=== PATIENT | female | born 1990 | race Caucasian/White ===

== ENCOUNTER → 2019-07-15 | Outpatient (CLI) | payer OTHER ==
--- NOTE | 2019-07-15 16:57 | Diagnostic Imaging Report ---
INDICATION: assessment of anatomy. TECHNIQUE: Multiple real-time grayscale images were obtained over the gravid uterus. COMPARISON: None. FINDINGS: Henry intrauterine gestation in oblique position. The placenta is fundal and on the right without evidence of previa. cardiac activity is present with a rate 147 bpm. There is normal amount of amniotic fluid. No anomaly is identified; however, there is mild dilatation of renal pelves. biometry indicates gestational age of 20 weeks and 1 day. No maternal adnexal region abnormality is identified. IMPRESSION: Unremarkable obstetrical ultrasound with estimated gestational age of 20 weeks and 1 day. Sonographic EDC is 12/01/2019. There is slight prominence of the renal collecting systems with normal amniotic fluid level present. Biometrical measurements are as follows: Biparietal 4.87 cm, age 20 weeks 6 days. Head circumference 17.45 cm, age 20 weeks 0 days. Abdominal circumference 14.84 cm, age 20 weeks 1 days. Femur length 3.06 cm, age 19 weeks 4 days. Sonographic estimate age: 20 weeks 1 days. Sonographic estimated date of delivery: 12/01/19. Estimated Weight: 318 gm (+/- 46 gm). LMP percentile: 38%. heart rate: 147 beats per minute. number: 1 of 1. Dictated by: Dictated on workstation # [id number]
== END ==
LOC: RAD 15:31
PROVIDERS: ATTEND Obstetrics & Gynecology
DX: Z36.89 Encounter for other specified antenatal screening (principal); Z3A.20 20 weeks gestation of pregnancy
CPT/HCPCS: 76805

== ENCOUNTER 2019-12-01 18:56 | Inpatient (IN) | payer OTHER ==
[~2019-12-01] VITALS: Ht 175.3 cm; Wt 87.4 kg
[2019-12-01] MEDS ORDERED: D5 LR IV SOLUTION 1,000 ML IV ONE (19:37)
[2019-12-01] MEDS: D5 LR IV SOLUTION 1,000 ML IV SCH (20:13)
[2019-12-01] MEDS ORDERED: MISOPROSTOL 100 MCG (CYTOTEC) TAB PO NR (20:15)
[2019-12-01] MEDS ORDERED: MINERAL OIL CONCENTRATE 99.9% 15 ML UDC TOP PRN (20:15)
[2019-12-01 20:30] VITALS: BP 114/65
[2019-12-01 21:04] VITALS: BP 114/70
[2019-12-01 21:09] LABS: BASOPHILS # (AUTO) 0.1 10^3/uL (0.0-0.1); BASOPHILS % (AUTO) 1 % (0-10); EOSINOPHILS # (AUTO) 0.1 10^3/uL (0.0-0.3); EOSINOPHILS % (AUTO) 1 % (0-10); HEMATOCRIT 39 % (35-52); HEMOGLOBIN 13.6 G/DL (11.5-16.0); LYMPHOCYTES # (AUTO) 2.1 X 10^3 (1.0-4.0); LYMPHOCYTES % (AUTO) 16 % (12-44); MEAN CORPUSCULAR HEMOGLOBIN 33 PG (25-34); MEAN CORPUSCULAR HGB CONC 35 G/DL (32-36); MEAN CORPUSCULAR VOLUME 94 FL (80-99); MEAN PLATELET VOLUME 11.1 FL (7.4-10.4); MONOCYTES % (AUTO) 8 % (0-12); NEUTROPHILS # (AUTO) 9.4 X 10^3 (1.8-7.8); NEUTROPHILS % (AUTO) 74 % (42-75); PLATELET COUNT 198 10^3/uL (130-400); WHITE BLOOD COUNT 12.6 10^3/uL (4.3-11.0)
[2019-12-01 21:30] VITALS: BP 112/58
[2019-12-01] MEDS ORDERED: CATHETER FLUSH 10 ML SYR IV SCH (22:00)
[2019-12-01 22:30] VITALS: BP 107/55
[2019-12-01 23:30] VITALS: BP 87/52
[2019-12-02] VITALS (38 sets, daily range): BP systolic 94–114; BP diastolic 48–78
[2019-12-02] MEDS: D5 LR IV SOLUTION 1,000 ML IV SCH ×3 (00:05→22:36)
[2019-12-02] MEDS ORDERED: MISOPROSTOL 100 MCG (CYTOTEC) TAB PO SCH (00:15)
[2019-12-02] MEDS ORDERED: OXYTOCIN PRE-MIX DRIP 500 ML IV SCH ×2 (06:20→12:41)
[2019-12-02] MEDS ORDERED: OXYTOCIN PRE-MIX DRIP 500 ML IV ONE (06:20)
[2019-12-02] MEDS ORDERED: LACTATED RINGERS 1,000 ML IV ONE ×2 (06:46→10:34)
[2019-12-02] MEDS ORDERED: ACYC400T PO (06:55)
[2019-12-02] MEDS ORDERED: fentaNYL 2 mcg/ml BUPIVA 0.125 100 ML ONE (07:22)
[2019-12-02] MEDS ORDERED: HYDROmorphone 2 MG/ML VIAL (DILAUDID) ONE (08:18)
[2019-12-02] MEDS ORDERED: fentaNYL INJECTION 100 MCG/2 ML AMP ONE (08:20)
[2019-12-02] MEDS ORDERED: ONDANSETRON 4 MG/2 ML (SDV) Z0FRAN ONE (08:21)
[2019-12-02] MEDS ORDERED: HYDROmorphone 2 MG/ML VIAL (DILAUDID) IVP ONE (08:30)
[2019-12-02] MEDS ORDERED: ONDANSETRON 4 MG/2 ML (SDV) Z0FRAN IVP PRN (08:30)
--- NOTE | 2019-12-02 08:50 | History & Physical-OB ---
OB - Chief Complaint & HPI Date/Time Date of Admission: Date of Admission: Dec 01, 2019 at 6:56 pm Date seen by a Provider: Dec 02, 2019 Time Seen by a Provider: 08:00 Chief Complaint/History OB-Reason for Admission/Chief: Induction of Labor Hx : 1 Hx Para: 0 Expected Date of Delivery: Dec 02, 2019 Gestational Age in Weeks: 39 Gestational Age in Days: 6 Admission Nurse Assessment Rev: Yes History of Labs A neg Antibody neg RI RPR NR HBsAg NR HIV NR GC neg GBS neg Allergies and Home Medications Allergies Coded Allergies: No Known Drug Allergies (Unverified , 12/01/19) Home Medications Acyclovir 400 Mg Tablet, 400 MG PO DAILY, (Reported) Patient Home Medication List Home Medication List Reviewed: Yes OB - History Hx of Present Care: Yes Ultrasounds: Normal mid trimester US Obstetrical Complications: None Medical Complications: None Delivery History Adverse Rxn to Tranfusion: No Patient Past Medical History n/a Social History/Family History HIV/AIDS: No Recent Infectious Disease Expo: No Sexually Transmitted Disease: Yes (HSV) Alcohol Use: Denies Use Recreational Drug Use: No Immunizations Hepatitis A: Yes Hepatitis B: Yes Date of Influenza Vaccine: Nov 26, 2019 OB - Admission Exam Physical Exam Vitals: Vital Signs 12/01/19 12/02/19 12/02/19 21:04 05:35 06:49 Temp 36.7 Pulse 63 Resp 20 B/P (MAP) 104/52 (69) Pulse Ox 97 O2 Delivery Room Air HEENT: NCAT Heart: Rhythm Normal Lungs: Clear Abdomen: Gravid Extremities: Normal Reflexes: Normal Cervical Dilatation: 3cm Effacement: 75% Station: -1 Membranes: Intact Heart Rate: 130's Accelerations: Accelerations Present Decelerations: No Decelerations Short Term Variability: Present Pot Liner Variability: Average (6-25) Contractions on Admission: 6-10 Minutes Apart Intensity: Mild Juan Scoring Tool (Modified) Dilation (cm): 1-2cm (1) Effacement (%): 51-79% (2) Descent/Station: -1,0 (2) Cervix Consistency: Soft (2) Cervix Position: Anterior (2) Subtract 1 point for: Nulliparity (-1) Juan Score: 8 Labs Laboratory Tests Test 12/01/19 19:50 Range/Units White Blood Count 12.6 H 4.3-11.0 10^3/uL Red Blood Count 4.16 L 4.35-5.85 10^6/uL Hemoglobin 13.6 11.5-16.0 G/DL Hematocrit 39 35-52 % Mean Corpuscular Volume 94 80-99 FL Mean Corpuscular Hemoglobin 33 25-34 PG Mean Corpuscular Hemoglobin Concent 35 32-36 G/DL Red Cell Distribution Width 13.5 10.0-14.5 % Platelet Count 198 130-400 10^3/uL Mean Platelet Volume 11.1 H 7.4-10.4 FL Neutrophils (%) (Auto) 74 42-75 % Lymphocytes (%) (Auto) 16 12-44 % Monocytes (%) (Auto) 8 0-12 % Eosinophils (%) (Auto) 1 0-10 % Basophils (%) (Auto) 1 0-10 % Neutrophils # (Auto) 9.4 H 1.8-7.8 X 10^3 Lymphocytes # (Auto) 2.1 1.0-4.0 X 10^3 Monocytes # (Auto) 1.0 0.0-1.0 X 10^3 Eosinophils # (Auto) 0.1 0.0-0.3 10^3/uL Basophils # (Auto) 0.1 0.0-0.1 10^3/uL OB - Assessment/Plan/Diagnosis Assessment Assessment: induction of labor Admission Dx 28 yo @ 39.6 Induction of labor GBS neg Admission Status: Inpatient Order (span 2 midnights) Reason for Inpatient Admission: Induction of labor at 39.6 Plan Plan: Induction Induction Method: per Misoprostol Protocol YASMIN GUEVARA DO Dec 02, 2019 8:50 am
[2019-12-02] MEDS ORDERED: LIDOCAINE/EPI 2% 1:200,00 (XYLOCAINE) 10 ML VIAL ONE (10:29)
[2019-12-02] MEDS ORDERED: fentaNYL 2 mcg/ml BUPIVA 0.125 100 ML EPI PRN (10:45)
[2019-12-02] MEDS ORDERED: METOCLOPRAMIDE INJ 10 MG/2 ML (REGLAN) IV PRN (10:45)
[2019-12-02] MEDS ORDERED: EPIDURAL (fentaNYL 2 MCG/ML BUPIVA 0.125%)100 ML BAG EPI PRN (10:45)
[2019-12-02] MEDS ORDERED: ONDANSETRON 4 MG/2 ML (SDV) Z0FRAN IV PRN (10:45)
[2019-12-02] MEDS ORDERED: NALOXONE 0.4 MG/ML 1 ML (NARCAN) VIAL IV PRN ×2 (10:45)
[2019-12-02] MEDS ORDERED: diphenhydrAMINE 50 MG/ML INJ (BENADRYL) IV PRN (10:45)
[2019-12-02] MEDS ORDERED: WITCH HAZEL(TUCKS) 40 EA JAR TOP PRN (12:45)
[2019-12-02] MEDS ORDERED: BENZOCAINE/MENTHOL (DERMOPLAST) 60 ML CAN TP PRN (12:45)
--- NOTE | 2019-12-02 13:30 | OB Labor & Delivery Record ---
L&D History Date of Service Date of Service: Dec 02, 2019 History Expected Date of Delivery: Dec 02, 2019 Gestational Age in Weeks: 40 Hx : 1 Hx Para: 0 Complications Events: Routine care Operative Indications (Cesarea: N/A-Vaginal Delivery Intrapartal Events: None L&D Stage1 Stage One Onset of Labor - Date: Dec 02, 2019 Monitors and Tracing Monitor Mode: External Heart Rate: 120 Monitor Accelerations: Uniform Monitor Decelerations: None Station: +1 Alf Variability: Average (6-10) Short Term Variability: Present Presentation: Vertex Vital Signs VS - Last 72 Hours, by Label 12/01/19 12/01/19 12/01/19 12/01/19 20:30 21:04 21:30 22:30 Temp 36.6 36.7 37.0 Pulse 74 82 68 67 Resp 18 18 18 18 B/P (MAP) 114/65 (81) 112/58 (76) 107/55 (72) Pulse Ox 97 O2 Delivery Room Air Room Air Room Air Room Air 12/01/19 12/02/19 12/02/19 12/02/19 23:30 00:30 01:30 02:30 Temp 36.7 Pulse 69 72 73 58 Resp 18 18 18 18 B/P (MAP) 87/52 (64) 107/59 (75) 107/55 (72) 101/59 (73) O2 Delivery Room Air Room Air Room Air Room Air 12/02/19 12/02/19 12/02/19 12/02/19 03:40 04:30 05:35 06:49 Temp 36.7 36.7 Pulse 79 60 63 63 Resp 20 20 20 20 B/P (MAP) 108/63 (78) 101/61 (74) 112/66 (81) 104/52 (69) O2 Delivery Room Air Room Air Room Air Room Air 12/02/19 12/02/19 12/02/19 12/02/19 07:20 07:40 08:05 08:20 Temp 36.4 Pulse 69 79 65 65 Resp 18 18 18 18 B/P (MAP) 103/50 (67) 112/53 (72) 114/66 (82) 112/55 (74) O2 Delivery Room Air Room Air Room Air Room Air 9/12/02/19 12/02/19 12/02/19 08:31 08:35 08:40 08:45 Pulse 70 83 89 69 Resp 18 18 18 18 B/P (MAP) 102/58 (73) 105/57 (73) 108/63 (78) 104/58 (73) Pulse Ox 96 97 97 98 O2 Delivery Room Air Room Air Room Air Room Air 12/02/19 12/02/19 12/02/19 12/02/19 08:50 08:55 09:00 09:05 Pulse 83 55 54 66 Resp 18 18 18 18 B/P (MAP) 105/57 (73) 97/52 (67) 96/54 (68) 102/56 (71) Pulse Ox 97 95 95 97 O2 Delivery Room Air Room Air Room Air Room Air 12/02/19 12/02/19 12/02/19 12/02/19 09:10 09:15 09:20 09:25 Pulse 62 59 56 68 Resp 18 18 18 18 B/P (MAP) 105/60 (75) 108/59 (75) 103/60 (74) 103/59 (74) Pulse Ox 100 98 99 98 O2 Delivery Room Air Room Air Room Air Room Air 12/02/19 12/02/19 12/02/19 09:30 09:35 09:50 Pulse 65 65 80 Resp 18 18 18 B/P (MAP) 105/57 (73) 105/57 (73) Pulse Ox 100 100 100 O2 Delivery Room Air Room Air Room Air Rupture of Membranes Spontaneous Ruture of Membrane: No Amniotic Membrane Rupture Time: 0800 Amniotic Membrane Fluid Desc.: Clear Vaginal Bleeding Description: Normal Show Induction/Anesthesia Epidural Cath Placement - Time: 0843 L&D Stage2 Stage Two Stage II Date: Dec 02, 2019 Monitors and Tracing Monitor Mode: External Heart Rate: 120 Monitor Accelerations: Uniform Monitor Decelerations: Variable Alf Variability: Average (6-10) Short Term Variability: Present Position: Right Occiput Anterior Presentation: Vertex Cord Descript/Complications Cord Vessel Description: 3 Vessels Delivery Type Delivery Method: Spontaneous Vaginal Anterior Shoulder: Left Episiotomy/Perineal Laceration Laceraction(s)/Extensions: Yes Episiotomy Description: Perineal Extension/lac, 2nd degree Degree (describe repair) 2nd degree perineal laceration repaired using 3-0 and 2-0 vicryl suture in usual fashion Condition of Delivery 1 minute Comment: 9 5 minute Comment: 9 Notes Live male 8lbs 2 oz Condition of Infant Condition of : Living Exam: No Observed Abnormalities Resuscitation Resuscitation: N/A - Spontaneous Resp L&D Stage3 Stage Three Stage III Date: Dec 02, 2019 Pictocin Pitocin Administration mu/min: 2 Pitocin ml/hr: 2 Pitocin Administration Comment: 30 mu wide open at delivery of placetna Placenta Delivery Placenta Delivery: Spontaneous Delivery Summary Summary Estimated blood loss (mL): 350 Attending at delivery: Yasmin Guevara DO Condition of Delivery Examined: Cervix Examined, Uterus Explored Post Hemorrhage: No Condition of Mother stable Condition of Infant (s) stable YASMIN GUEVARA DO Dec 02, 2019 1:30 pm
[2019-12-02] MEDS: IBUPROFEN 600 MG (MOTRIN) TAB PO SCH ×2 (14:02→21:11)
[2019-12-02] MEDS: DOCUSATE SODIUM 100 MG (COLACE) CAP PO SCH (21:11)
[2019-12-03 00:30] VITALS: BP 97/65
[2019-12-03 03:15] VITALS: BP 98/63
[2019-12-03] MEDS: IBUPROFEN 600 MG (MOTRIN) TAB PO SCH ×2 (03:15→08:29)
[2019-12-03 05:45] LABS: BASOPHILS # (AUTO) 0.1 10^3/uL (0.0-0.1); BASOPHILS % (AUTO) 1 % (0-10); EOSINOPHILS # (AUTO) 0.1 10^3/uL (0.0-0.3); EOSINOPHILS % (AUTO) 1 % (0-10); HEMATOCRIT 32 % (35-52); HEMOGLOBIN 10.8 g/dL (11.5-16.0); LYMPHOCYTES # (AUTO) 2.3 10^3/uL (1.0-4.0); LYMPHOCYTES % (AUTO) 20 % (12-44); MEAN CORPUSCULAR HEMOGLOBIN 32 pg (25-34); MEAN CORPUSCULAR HGB CONC 33 g/dL (32-36); MEAN CORPUSCULAR VOLUME 97 fL (80-99); MEAN PLATELET VOLUME 10.3 fL (9.0-12.2); MONOCYTES % (AUTO) 9 % (0-12); NEUTROPHILS # (AUTO) 7.5 10^3/uL (1.8-7.8); NEUTROPHILS % (AUTO) 65 % (42-75); PLATELET COUNT 150 10^3/uL (130-400); WHITE BLOOD COUNT 11.6 10^3/uL (4.3-11.0)
--- NOTE | 2019-12-03 06:42 | Anesthesia-Regional Post-Op ---
Regional Patient Condition Mental Status: Alert, Oriented x3 Circulation: Same as Pre-Op Headache: Absent Sensation: Full Recovery Motor Block: Absent Post Op Complications Complications None Follow Up Care/Instructions Patient Instructions None needed. Anesthesia/Patient Condition Patient is doing well, no complaints, stable vital signs, no apparent adverse anesthesia problems. No complications reported per nursing. MARIA EUGENIA NUNEZ CRNA Dec 03, 2019 06:42
--- NOTE | 2019-12-03 08:24 | Postpartum Progress Note ---
Note Note Day # 1 Subjective: Patient is without complaints. Ambulating, voiding. Tolerating a regular diet without nausea or vomiting. Normal lochia. Pain is well controlled with oral pain medications. Objective: Physical Exam: General - Alert and oriented, no apparent distress Abdomen - Soft, appropriately tender to palpation, non-distended, fundus firm at umbilicus Extremities - no edema, negative Catina's bilaterally Assessment: PPD 1 NVD Acute blood loss anemia Plan: Routine care. Encourage breast feeding. Encourage ambulation. Ferrous sulfate supplementation. Plan for discharge today Vitals - Labs Vital Signs - I&O Vital Signs Date Time Temp Pulse Resp B/P (MAP) Pulse Ox O2 Delivery O2 Flow Rate FiO2 12/03/19 03:15 36.6 65 18 98/63 (75) 99 Room Air 12/03/19 00:30 36.3 67 18 97/65 (76) 100 Room Air 12/02/19 21:11 36.8 69 18 108/61 (77) 100 Room Air 12/02/19 18:00 35.7 92 18 113/78 (90) 100 Room Air 12/02/19 13:07 74 18 103/55 (71) Room Air 12/02/19 12:52 73 18 97/56 (70) Room Air 12/02/19 12:37 78 18 99/60 (73) Room Air 12/02/19 12:22 69 18 95/51 (66) Room Air 12/02/19 12:07 74 18 94/50 (65) Room Air 12/02/19 11:52 79 18 94/48 (63) Room Air 12/02/19 11:37 74 18 102/55 (71) Room Air 12/02/19 11:07 73 18 98/56 (70) Room Air 12/02/19 10:52 90 18 114/59 (77) Room Air 12/02/19 10:37 36.4 153 18 110/50 (70) Room Air 12/02/19 10:20 60 18 107/51 (69) Room Air 12/02/19 10:05 73 18 100 Room Air 12/02/19 09:50 80 18 105/57 (73) 100 Room Air 12/02/19 09:35 65 18 100 Room Air 12/02/19 09:30 65 18 105/57 (73) 100 Room Air 12/02/19 09:25 68 18 103/59 (74) 98 Room Air 12/02/19 09:20 56 18 103/60 (74) 99 Room Air 12/02/19 09:15 59 18 108/59 (75) 98 Room Air 12/02/19 09:10 62 18 105/60 (75) 100 Room Air 12/02/19 09:05 66 18 102/56 (71) 97 Room Air 12/02/19 09:00 54 18 96/54 (68) 95 Room Air 12/02/19 08:55 55 18 97/52 (67) 95 Room Air 12/02/19 08:50 83 18 105/57 (73) 97 Room Air 12/02/19 08:45 69 18 104/58 (73) 98 Room Air 12/02/19 08:40 89 18 108/63 (78) 97 Room Air 12/02/19 08:35 83 18 105/57 (73) 97 Room Air 12/02/19 08:31 70 18 102/58 (73) 96 Room Air I & O 12/03/19 07:00 Intake Total 3000 ml Balance 3000 ml Labs Laboratory Tests 12/03/19 05:35: White Blood Count 11.6H, Red Blood Count 3.34L, Hemoglobin 10.8L, Hematocrit 32L , Mean Corpuscular Volume 97, Mean Corpuscular Hemoglobin 32, Mean Corpuscular Hemoglobin Concent 33, Red Cell Distribution Width 13.2, Platelet Count 150, Mean Platelet Volume 10.3, Immature Granulocyte % (Auto) 6, Neutrophils (%) (Auto) 65, Lymphocytes (%) (Auto) 20, Monocytes (%) (Auto) 9, Eosinophils (%) (Auto) 1, Basophils (%) (Auto) 1, Neutrophils # (Auto) 7.5, Lymphocytes # (Auto) 2.3, Monocytes # (Auto) 1.0, Eosinophils # (Auto) 0.1, Basophils # (Auto) 0.1, Immature Granulocyte # (Auto) 0.6H YASMIN GUEVARA DO Dec 03, 2019 08:24
[2019-12-03] MEDS ORDERED: DCS100C PO (08:26)
[2019-12-03] MEDS ORDERED: IBUP-844 PO (08:26)
[2019-12-03] MEDS ORDERED: BENZ78AE5 TP (08:26)
--- NOTE | 2019-12-03 08:26 | Discharge Inst-Women's Service ---
Discharge Inst-Women's Serv Depart Medication/Instructions New, Converted or Re-Newed RX: RX on Chart Final Diagnosis PPD 1 NVD Problems Reviewed?: Yes Consults/Follow Up Additional Follow Up: Yes Orders/Referrals Dr. Guevara in 6 weeks Activity Activity: Activity as Tolerated Driving Instructions: No Driving for 1 Week NO SMOKING: NO SMOKING Nothing Inside Vagina: No Douching, No [place], No Tampons Diet Discharge Diet: No Restrictions Symptoms to Report to : Bleeding Excessive, Pain Increased, Fever Over 101 Degrees F, Vaginal Bleeding Increase, Questions/Concerns For Any Problems or Questions: Contact Your Physician YASMIN GUEVARA DO Dec 03, 2019 08:26
[2019-12-03] MEDS: DOCUSATE SODIUM 100 MG (COLACE) CAP PO SCH (08:28)
[2019-12-03 08:30] VITALS: BP 123/81
== END 2019-12-03 14:10 | disposition home or self-care (01) | DRG 806 ==
LOC: LDRP 18:56
PROVIDERS: ADMIT Obstetrics & Gynecology; ATTEND Obstetrics & Gynecology
PROC: 10E0XZZ Delivery of Products of Conception, External Approach (ICD-10-PCS; principal; 2019-12-02)
PROC: 0KQM0ZZ Repair Perineum Muscle, Open Approach (ICD-10-PCS; 2019-12-02)
DX: O98.32 Other infections with a predominantly sexual mode of transmission complicating childbirth (principal); D62 Acute posthemorrhagic anemia; Z37.0 Single live birth; B00.9 Herpesviral infection, unspecified; O70.1 Second degree perineal laceration during delivery; O90.81 Anemia of the puerperium; Z3A.39 39 weeks gestation of pregnancy
CPT/HCPCS: 36415; 83033; 85025; 86850; 86900; 86901

== ENCOUNTER → 2021-03-22 | Outpatient (CLI) | payer OTHER ==
[~2021-03-22] MED LIST: ACYC400T21 PO; BENZ78AE5 TP; DOCU-239 PO; IBUP-844 PO
== END ==
LOC: LABNPT 08:47
PROVIDERS: ATTEND Family Medicine
DX: Z53.9 Procedure and treatment not carried out, unspecified reason (principal)

== ENCOUNTER → 2021-03-22 | Outpatient (CLI) | payer OTHER | LOC: LABNPT 10:10 | PROVIDERS: ATTEND Nurse Practitioner Family | DX: U07.1 COVID-19 (principal) | CPT/HCPCS: 87636 ==

== ENCOUNTER → 2022-03-30 | Outpatient (CLI) | payer BC, OTHER ==
--- NOTE | 2022-03-30 17:20 | Diagnostic Imaging Report ---
INDICATION: . Anatomic follow-up TECHNIQUE: Multiple real-time grayscale images were obtained over the gravid uterus. COMPARISON: None FINDINGS: Single live intrauterine is identified. heart rate measures 135 bpm. Total amniotic fluid measures 10.1 cm. Placenta is anterior. Tip is low-lying. It terminates approximately 2.7 cm away from the internal cervical os. Cervix is closed and measures 4.3 cm in diameter. Estimated gestational age on today's exam is 21 weeks and 3 days with estimated date of delivery of 08/07/2022. This is within acceptable range of clinical dates. Estimated gestational age based on clinical dates is 20 weeks and 6 days with estimated date of delivery of 08/11/2022. Anatomic survey was performed. Kidneys are not well visualized due to position. The bladder, stomach, four-chamber heart, three-vessel cord, and cord insertion are well visualized. spine and intracranial structures are grossly unremarkable. Maternal adnexa are unremarkable. Maternal ovaries are not well-visualized due to positioning. IMPRESSION: 1. Single live intrauterine measuring within acceptable range of provided clinical dates. 2. kidney is not well-visualized. Follow-up is advised. 3. Low-lying anterior placenta. Follow-up is advised. 4. Other findings as detailed above and below. Biometrical measurements are as follows: Biparietal 4.80 cm, age 20 weeks 4 days. Head circumference 18.67 cm, age 21 weeks 0 days. Abdominal circumference 17.89 cm, age 22 weeks 6 days. Femur length 3.43 cm, age 20 weeks 6 days. Sonographic estimate age: 21 weeks 3 days. Sonographic estimated date of delivery: 08/07/2022. Estimated Weight: 447 gm (+/- 66 gm). LMP percentile: 88%. heart rate: 135 beats per minute. number: 1 of 1. Dictated by: Dictated on workstation # [id number]
== END ==
LOC: RAD 15:15
PROVIDERS: ATTEND Obstetrics & Gynecology
DX: Z34.82 Encounter for supervision of other normal pregnancy, second trimester (principal); O99.891 Other specified diseases and conditions complicating pregnancy; Z3A.21 21 weeks gestation of pregnancy
CPT/HCPCS: 76805

== ENCOUNTER 2022-08-04 22:01 | Inpatient (IN) | payer BC ==
[~2022-08-04] VITALS: Ht 175.3 cm; Wt 91.6 kg
[2022-08-04] VITALS (8 sets, daily range): BP systolic 116–126; BP diastolic 57–75
[2022-08-04] MEDS ORDERED: D5 LR IV SOLUTION 1,000 ML IV ONE (22:43)
[2022-08-04] MEDS ORDERED: fentaNYL 2 mcg/ml BUPIVA 0.125 100 ML ONE (22:44)
[2022-08-04] MEDS ORDERED: MINERAL OIL 30 ML UDC TOP PRN (22:45)
[2022-08-04] MEDS ORDERED: D5 LR IV SOLUTION 1,000 ML IV SCH (22:45)
[2022-08-04 22:46] LABS: BASOPHILS % (AUTO) 0 % (0-10); EOSINOPHILS # (AUTO) 0.1 10^3/uL (0.0-0.3); EOSINOPHILS % (AUTO) 1 % (0-10); HEMATOCRIT 35 % (35-52); HEMOGLOBIN 12.4 g/dL (11.5-16.0); LYMPHOCYTES # (AUTO) 2.5 10^3/uL (1.0-4.0); LYMPHOCYTES % (AUTO) 28 % (12-44); MEAN CORPUSCULAR HEMOGLOBIN 32 pg (25-34); MEAN CORPUSCULAR HGB CONC 35 g/dL (32-36); MEAN CORPUSCULAR VOLUME 91 fL (80-99); MEAN PLATELET VOLUME 10.7 fL (9.0-12.2); MONOCYTES # (AUTO) 0.7 10^3/uL (0.0-1.0); MONOCYTES % (AUTO) 8 % (0-12); NEUTROPHILS # (AUTO) 5.2 10^3/uL (1.8-7.8); NEUTROPHILS % (AUTO) 58 % (42-75); PLATELET COUNT 161 10^3/uL (130-400)
[2022-08-04] MEDS ORDERED: fentaNYL INJ 100 MCG/2 ML AMP ONE (23:23)
[2022-08-04] MEDS ORDERED: BUPIVACAINE 0.25% 10 ML (SENSORCAINE) VIAL ONE (23:23)
[2022-08-05] VITALS (17 sets, daily range): BP systolic 101–117; BP diastolic 54–76
[2022-08-05] MEDS ORDERED: fentaNYL 2 mcg/ml BUPIVA 0.125 100 ML IV SCH
[2022-08-05] MEDS ORDERED: CATHETER FLUSH 10 ML SYR IV PRN
[2022-08-05] MEDS ORDERED: LACTATED RINGERS 1,000 ML IV ONE
[2022-08-05] MEDS ORDERED: PREN1TAB79 PO (00:09)
[2022-08-05] MEDS ORDERED: OXYTOCIN PRE-MIX DRIP 500 ML IV ONE ×2 (03:32)
[2022-08-05] MEDS ORDERED: MEASLES,MUMPS,RUBELLA 1 EA INJ SQ ONE (04:00)
[2022-08-05] MEDS ORDERED: NALOXONE 0.4 MG/ML 1 ML (NARCAN) VIAL IV PRN ×2 (04:00)
[2022-08-05] MEDS ORDERED: BENZOCAINE/MENTHOL (DERMOPLAST) 56 ML CAN TP PRN (04:00)
[2022-08-05] MEDS ORDERED: DIBUCAINE 1% OINTMENT 28 GM TUBE TOP PRN (04:00)
[2022-08-05] MEDS ORDERED: TETANUS,DIPTH,PERTUSS P/F (BOOSTRIX) 0.5 ML VIAL IM ONE (04:00)
[2022-08-05] MEDS ORDERED: HYDROcodone/APAP 5 MG/325 MG (LORTAB) TAB PO PRN (04:00)
--- NOTE | 2022-08-05 04:01 | History & Physical-OB ---
OB - Chief Complaint & HPI Date/Time Date of Admission: Date of Admission: Aug 04, 2022 at 22:39 Date seen by a Provider: Aug 05, 2022 Time Seen by a Provider: 03:10 Chief Complaint/History OB-Reason for Admission/Chief: Onset of Labor Hx : 2 Hx Para: 1 Expected Date of Delivery: Aug 11, 2022 Gestational Age in Weeks: 39 Gestational Age in Days: 1 Admission Nurse Assessment Rev: Yes History of Labs see prenatals Allergies and Home Medications Allergies Coded Allergies: No Known Drug Allergies (Unverified , 12/01/19) Patient Home Medication List Home Medication List Reviewed: Yes Vit W-Ca,Fe,FA(<1 mg) ( Vitamins) 27 Mg Iron-800 Mcg Tablet, 1 EACH PO, (Reported) Entered as Reported by: Marianna Langley on 08/05/22 0009 Last Action: New Order OB - History Hx of Present Care: Yes Ultrasounds: Normal mid trimester US Obstetrical Complications: None Medical Complications: None Delivery History Adverse Rxn to Tranfusion: No Patient Past Medical History n/a Immunizations Influenza Vaccine Up-to-Date: No; Not Current Hepatitis A: Yes Hepatitis B: Yes OB - Admission Exam Physical Exam Vitals: Vital Signs 08/05/22 08/05/22 02:30 02:46 Temp 36.6 Pulse 69 Resp 18 B/P (MAP) 108/60 (76) Pulse Ox 97 O2 Delivery Room Air HEENT: NCAT Heart: Rhythm Normal Lungs: Clear Abdomen: Gravid Extremities: Normal Cervical Dilatation: 7cm Effacement: 75% Station: -1 Membranes: Intact Heart Rate: 130's Accelerations: Accelerations Present Decelerations: No Decelerations Short Term Variability: Present Custodial Variability: Average (6-25) Contractions on Admission: < 5 Minutes Apart Intensity: Firm Labs Laboratory Tests Test 08/04/22 22:25 Range/Units White Blood Count 9.0 4.3-11.0 10^3/uL Red Blood Count 3.87 3.80-5.11 10^6/uL Hemoglobin 12.4 11.5-16.0 g/dL Hematocrit 35 35-52 % Mean Corpuscular Volume 91 80-99 fL Mean Corpuscular Hemoglobin 32 25-34 pg Mean Corpuscular Hemoglobin Concent 35 32-36 g/dL Red Cell Distribution Width 13.5 10.0-14.5 % Platelet Count 161 130-400 10^3/uL Mean Platelet Volume 10.7 9.0-12.2 fL Immature Granulocyte % (Auto) 5 % Neutrophils (%) (Auto) 58 42-75 % Lymphocytes (%) (Auto) 28 12-44 % Monocytes (%) (Auto) 8 0-12 % Eosinophils (%) (Auto) 1 0-10 % Basophils (%) (Auto) 0 0-10 % Neutrophils # (Auto) 5.2 1.8-7.8 10^3/uL Lymphocytes # (Auto) 2.5 1.0-4.0 10^3/uL Monocytes # (Auto) 0.7 0.0-1.0 10^3/uL Eosinophils # (Auto) 0.1 0.0-0.3 10^3/uL Basophils # (Auto) 0.0 0.0-0.1 10^3/uL Immature Granulocyte # (Auto) 0.5 H 0.0-0.1 10^3/uL Syphilis Total Antibody Negative Negative OB - Assessment/Plan/Diagnosis Assessment Assessment: active labor Admission Dx 31 yo @ 39 weeks Active labor GBS neg Admission Status: Inpatient Order (span 2 midnights) Reason for Inpatient Admission: active labor at 39 weks Plan Plan: Expectant Management YASMIN GUEVARA DO Aug 05, 2022 04:01
--- NOTE | 2022-08-05 04:04 | OB Labor & Delivery Record ---
L&D History Date of Service Date of Service: Aug 05, 2022 History Expected Date of Delivery: Aug 11, 2022 Gestational Age in Weeks: 39 Hx : 2 Hx Para: 1 Complications Events: Routine care Operative Indications (Cesarea: N/A-Vaginal Delivery Intrapartal Events: None L&D Stage1 Stage One Onset of Labor - Date: Aug 05, 2022 Monitors and Tracing Monitor Mode: External Heart Rate: 125 Monitor Accelerations: Uniform Monitor Decelerations: Variable Station: -1 Front Of House Manager Variability: Average (6-10) Short Term Variability: Present Presentation: Vertex Vital Signs VS - Last 72 Hours, by Label 08/04/22 08/04/22 08/04/22 08/04/22 22:45 23:30 23:32 23:34 Temp 36.7 36.7 Pulse 62 61 75 67 Resp 18 18 18 18 B/P (MAP) 119/71 (87) 119/75 (90) 116/69 (85) Pulse Ox 99 99 98 98 O2 Delivery Room Air Room Air Room Air Room Air 08/04/22 08/04/22 08/04/22 08/04/22 23:36 23:38 23:40 23:45 Pulse 68 64 61 80 Resp 18 18 17 16 B/P (MAP) 125/57 (79) 116/57 (76) 126/63 (84) 122/59 (80) Pulse Ox 98 98 99 99 O2 Delivery Room Air Room Air Room Air Room Air 08/05/22 08/05/22 08/05/22 08/05/22 00:00 00:15 00:30 00:45 Pulse 89 65 75 77 Resp 16 16 16 17 B/P (MAP) 115/63 (80) 117/57 (77) 109/65 (80) 109/76 (87) Pulse Ox 98 98 98 98 O2 Delivery Room Air Room Air Room Air Room Air 08/05/22 08/05/22 08/05/22 08/05/22 01:30 01:46 02:30 02:46 Temp 36.6 36.6 Pulse 60 71 67 69 Resp 16 16 18 18 B/P (MAP) 112/58 (76) 110/75 (87) 104/58 (73) 108/60 (76) Pulse Ox 97 97 98 97 O2 Delivery Room Air Room Air Room Air Room Air Rupture of Membranes Spontaneous Ruture of Membrane: Yes Amniotic Membrane Rupture Time: 2337 Amniotic Membrane Fluid Desc.: Meconium Stained Vaginal Bleeding Description: Normal Show Induction/Anesthesia Epidural Cath Placement - Time: 2332 Progress/Notes Patient admitted in active labor. After epidural was placed SROM occurred mec stained. She progressed with no augmentation to complete and + 2 station L&D Stage2 Stage Two Stage II Date: Aug 05, 2022 Monitors and Tracing Monitor Mode: External Heart Rate: 125 Position: Right Occiput Posterior Presentation: Vertex Cord Descript/Complications Cord Vessel Description: 3 Vessels Delivery Type Infant Delivery Method: Spontaneous Vaginal Anterior Shoulder: Left Episiotomy/Perineal Laceration Laceraction(s)/Extensions: Yes Episiotomy Description: Periurethral Extnsion/lac, 2nd degree Degree (describe repair) laceration repaired using 3-0 rapide and 2-0 vicryl suture Condition of Delivery 1 minute Comment: 9 5 minute Comment: 10 Notes Live male weight 7lbs 15 oz Condition of Infant Condition of Infant: Living Exam: No Observed Abnormalities Resuscitation Resuscitation: N/A - Spontaneous Resp L&D Stage3 Stage Three Stage III Date: Aug 05, 2022 Pictocin Pitocin Administration Comment: 30 mu wide open after delivery of placenta Placenta Delivery Placenta Delivery: Spontaneous Delivery Summary Summary Estimated blood loss (mL): 350 Attending at delivery: Yasmin Guevara DO Condition of Delivery Examined: Cervix Examined, Uterus Explored Post Hemorrhage: No Condition of Mother stable Condition of (s) stable YASMIN GUEVARA DO Aug 05, 2022 04:04
--- NOTE | 2022-08-05 04:05 | Discharge Inst-Women's Service ---
Discharge Inst-Women's Serv Depart Medication/Instructions New, Converted or Re-Newed RX: Transmitted to Pharmacy Final Diagnosis PPD 1 NVD Problems Reviewed?: Yes Consults/Follow Up Additional Follow Up: Yes Orders/Referrals Dr. Guevara in 6 weeks Activity Activity: Activity as Tolerated Driving Instructions: No Driving for 1 Week NO SMOKING: NO SMOKING Nothing Inside Vagina: No Douching, No [place], No Tampons Diet Discharge Diet: No Restrictions Symptoms to Report to : Bleeding Excessive, Pain Increased, Fever Over 101 Degrees F, Vaginal Bleeding Increase, Questions/Concerns For Any Problems or Questions: Contact Your Physician YASMIN GUEVARA DO Aug 05, 2022 04:05
[2022-08-05] MEDS ORDERED: DIBU30OI TOP (04:06)
[2022-08-05] MEDS ORDERED: DOCU100C37 PO (04:06)
[2022-08-05] MEDS ORDERED: ACHD5005 PO (04:06)
[2022-08-05] MEDS ORDERED: FERR325T24 PO (04:06)
[2022-08-05] MEDS ORDERED: IBUP-844 PO (04:06)
[2022-08-05] MEDS ORDERED: BENZ78AE5 TP (04:06)
[2022-08-05] MEDS: OXYTOCIN PRE-MIX DRIP 500 ML IV SCH ×2 (04:19→05:34)
[2022-08-05] MEDS ORDERED: CATHETER FLUSH 10 ML SYR IV SCH ×2 (06:00)
[2022-08-05] MEDS: IBUPROFEN 600 MG (MOTRIN) TAB PO SCH ×4 (06:12→18:40)
[2022-08-05] MEDS: WITCH HAZEL(TUCKS) 40 EA JAR TOP PRN (06:13)
[2022-08-05] MEDS: DOCUSATE SODIUM 100 MG (COLACE) CAP PO SCH ×2 (08:49→20:24)
[2022-08-05] MEDS: FERROUS SULF 325 MG (IRON) TAB PO SCH (08:49)
[2022-08-05] MEDS: PRENATAL VITAMIN 1 EA TAB PO SCH (08:49)
--- NOTE | 2022-08-05 11:55 | Anesthesia-Regional Post-Op ---
Regional Patient Condition Mental Status: Alert, Oriented x3 Circulation: Same as Pre-Op Headache: Absent Sensation: Full Recovery Motor Block: Absent Post Op Complications Complications None Follow Up Care/Instructions Patient Instructions None needed. Anesthesia/Patient Condition Patient is doing well, no complaints, stable vital signs, no apparent adverse anesthesia problems. No complications reported per nursing. TASHA CUBA CRNA Aug 05, 2022 11:55
[2022-08-06] MEDS: IBUPROFEN 600 MG (MOTRIN) TAB PO SCH ×2 (01:43→08:13)
[2022-08-06 01:46] VITALS: BP 110/62
[2022-08-06] MEDS: WITCH HAZEL(TUCKS) 40 EA JAR TOP PRN (01:48)
[2022-08-06 05:43] LABS: BASOPHILS # (AUTO) 0.1 10^3/uL (0.0-0.1); BASOPHILS % (AUTO) 1 % (0-10); EOSINOPHILS # (AUTO) 0.2 10^3/uL (0.0-0.3); EOSINOPHILS % (AUTO) 2 % (0-10); HEMATOCRIT 33 % (35-52); HEMOGLOBIN 11.3 g/dL (11.5-16.0); LYMPHOCYTES # (AUTO) 3.2 10^3/uL (1.0-4.0); LYMPHOCYTES % (AUTO) 30 % (12-44); MEAN CORPUSCULAR HEMOGLOBIN 32 pg (25-34); MEAN CORPUSCULAR HGB CONC 34 g/dL (32-36); MEAN CORPUSCULAR VOLUME 94 fL (80-99); MEAN PLATELET VOLUME 10.4 fL (9.0-12.2); MONOCYTES # (AUTO) 0.7 10^3/uL (0.0-1.0); MONOCYTES % (AUTO) 7 % (0-12); NEUTROPHILS # (AUTO) 5.8 10^3/uL (1.8-7.8); NEUTROPHILS % (AUTO) 55 % (42-75); PLATELET COUNT 157 10^3/uL (130-400); WHITE BLOOD COUNT 10.6 10^3/uL (4.3-11.0)
[2022-08-06] MEDS ORDERED: RHO(D) IMMUNE GLOBULIN 300 MCG/2 ML SYRINGE IM/IV ONE (08:00)
[2022-08-06 08:11] VITALS: BP 112/66
[2022-08-06] MEDS: PRENATAL VITAMIN 1 EA TAB PO SCH (08:13)
[2022-08-06] MEDS: DOCUSATE SODIUM 100 MG (COLACE) CAP PO SCH (08:13)
[2022-08-06] MEDS: FERROUS SULF 325 MG (IRON) TAB PO SCH (08:13)
--- NOTE | 2022-08-06 10:59 | Postpartum Progress Note ---
Note Note Day # 1 Subjective: Patient is without complaints. Ambulating, voiding. Tolerating a regular diet without nausea or vomiting. Normal lochia. Pain is well controlled with oral pain medications. Objective: Physical Exam: General - Alert and oriented, no apparent distress Abdomen - Soft, appropriately tender to palpation, non-distended, fundus firm at umbilicus Extremities - no edema, negative Catina's bilaterally Assessment: PPD 1 NVD Plan: Routine care. Encourage breast feeding. Encourage ambulation. Ferrous sulfate supplementation. Plan for discharge today Vitals - Labs Vital Signs - I&O Vital Signs Date Time Temp Pulse Resp B/P (MAP) Pulse Ox O2 Delivery O2 Flow Rate FiO2 08/06/22 10:30 Room Air 08/06/22 08:11 36.3 86 16 112/66 (81) 98 Room Air 08/06/22 01:46 36.3 70 16 110/62 (78) 99 Room Air 08/05/22 20:40 36.7 77 17 105/70 (82) 08/05/22 16:30 36.4 66 18 102/55 (71) 96 Room Air 08/05/22 11:50 36.5 68 18 106/56 (73) 98 Room Air Labs Laboratory Tests 08/06/22 05:20: White Blood Count 10.6, Red Blood Count 3.53L, Hemoglobin 11.3L, Hematocrit 33L, Mean Corpuscular Volume 94, Mean Corpuscular Hemoglobin 32, Mean Corpuscular Hemoglobin Concent 34, Red Cell Distribution Width 13.7, Platelet Count 157, Mean Platelet Volume 10.4, Immature Granulocyte % (Auto) 6, Neutrophils (%) (Auto) 55, Lymphocytes (%) (Auto) 30, Monocytes (%) (Auto) 7, Eosinophils (%) (Auto) 2, Basophils (%) (Auto) 1, Neutrophils # (Auto) 5.8, Lymphocytes # (Auto) 3.2, Monocytes # (Auto) 0.7, Eosinophils # (Auto) 0.2, Basophils # (Auto) 0.1, Immature Granulocyte # (Auto) 0.7H YASMIN GUEVARA DO Aug 06, 2022 10:59
== END 2022-08-06 10:30 | disposition home or self-care (01) | DRG 807 ==
LOC: WSo 22:01 → LDRP 22:03 → WSo 22:38 → LDRP 22:39
PROVIDERS: ADMIT Obstetrics & Gynecology; ATTEND Obstetrics & Gynecology
PROC: 10E0XZZ Delivery of Products of Conception, External Approach (ICD-10-PCS; principal; 2022-08-05)
PROC: 0KQM0ZZ Repair Perineum Muscle, Open Approach (ICD-10-PCS; 2022-08-05)
PROC: 0UQMXZZ Repair Vulva, External Approach (ICD-10-PCS; 2022-08-05)
DX: O70.1 Second degree perineal laceration during delivery (principal); Z37.0 Single live birth; O71.82 Other specified trauma to perineum and vulva; O77.0 Labor and delivery complicated by meconium in amniotic fluid; Z3A.39 39 weeks gestation of pregnancy
CPT/HCPCS: 36415; 83033; 85025; 86780; 86850; 86900; 86901; 99212